=== PATIENT | male | born 1985 | race American Indian/Alaskan Native ===

== ENCOUNTER 2022-12-11 08:15 | Emergency (ER) | payer OTHER ==
[2022-12-11] MEDS ORDERED: Aspirin 81 MG Tab.Chew PO ONE (08:31)
[2022-12-11] MEDS ORDERED: Nitroglycerin 0.4 MG Tab.SL SL ONE (08:32)
[2022-12-11 08:53] LABS: BASOPHILS PERCENT AUTO 0.5 % (0.3-3.8); EOSINOPHILS ABSOLUTE AUTO 0.2 x10-3/uL (0.0-0.6); EOSINOPHILS PERCENT AUTO 2.1 % (0.1-6.8); HEMATOCRIT 34.2 % (38.3-50.1); HEMOGLOBIN 11.7 g/dL (12.9-17.7); LYMPHOCYTES ABSOLUTE AUTO 2.2 x10-3/uL (0.5-4.5); LYMPHOCYTES PERCENT AUTO 22.7 % (15.8-45.3); MEAN CORPUSCULAR HEMOGLOBIN 31.3 pg (27.0-33.3); MEAN CORPUSCULAR HGB CONC 34.2 g/dL (28.7-35.3); MEAN CORPUSCULAR VOLUME 91.5 fL (80.8-98.7); MEAN PLATELET VOLUME 7.7 fL (6.7-11.0); MONOCYTES ABSOLUTE AUTO 0.5 x10-3/uL (0.0-1.2); MONOCYTES PERCENT AUTO 5.2 % (5.5-15.2); NEUTROPHILS ABSOLUTE AUTO 6.7 x10-3/uL (1.7-6.9); NEUTROPHILS PERCENT AUTO 69.5 % (40.3-71.8); PLATELET COUNT,PLT 206 x10(3)uL (117-477); RED BLOOD CELL COUNT 3.74 x10(6)uL (3.90-5.90); RED CELL DISTRIBUTION WIDTH 16.7 % (12.4-15.0); WHITE BLOOD CELL COUNT,WBC 9.7 x10-3/uL (3.2-10.1)
[2022-12-11 08:54] LABS: BLOOD UREA NITROGEN,BUN 2 mg/dL (7-18); BUN/CREATININE RATIO 2.2 (9-20); CALCIUM 7.9 mg/dL (8.6-10.2); CARBON DIOXIDE,CO2 25 mmol/L (21-32); CHLORIDE,CL 100 mmol/L (100-110); CREATININE 0.9 mg/dL (0.70-1.30); EST CRCL DRUG DOSING (CG) 139.31 mL/min; ESTIMATED GFR 114 mL/min (>60); GLUCOSE RANDOM 108 mg/dL (80-116); POTASSIUM,K 3.1 mmol/L (3.5-5.3); SODIUM,NA 136 mmol/L (135-145)
[2022-12-11] MEDS ORDERED: Ketorolac 30 MG/ML SDV IVPUSH ONE (08:56)
[2022-12-11 09:00] LABS: A/G RATIO 0.3; ALANINE AMINOTRANSFERASE,ALT 31 U/L (12-36); ALBUMIN 2.5 g/dL (3.5-5.2); ALKALINE PHOSPHATASE 314 IU/L (56-112); ASPARTATE AMNIOTRANSFERASE,AST 120 IU/L (5-25); BILIRUBIN TOTAL 1.7 mg/dL (0.1-1.3); PROTEIN TOTAL,TP 10.1 g/dL (6.0-8.0)
[2022-12-11] MEDS ORDERED: Potassium Chloride 20 MEQ Tab.ER PO ONE (09:27)
[2022-12-11 09:39] LABS: D-DIMER QUANTITATIVE 0.66 mg/LFEU (0.0-0.59); INR 1.29 (1.00-1.24); PROTHROMBIN TIME 13.2 sec (9.0-11.1); PTT,PARTIAL THROMBOPLSTIN TIME 32.1 SECONDS (24.4-33.2)
[2022-12-11] MEDS ORDERED: Magnesium Sulfate/Water 2 GM in Premix Bag 1 BAG IV ONE (09:43)
[2022-12-11] MEDS ORDERED: Iopamidol 755 Mg/ML 100 ML Bottle IV SCH ×2 (11:00)
[2022-12-11] MEDS ORDERED: Heparin Sodium 5,000 Units/ML Vial IVPUSH ONE (12:05)
[2022-12-11] MEDS ORDERED: Heparin Sodium/0.45% NaCl 500 ML IV SCH (12:06)
[2022-12-11] MEDS ORDERED: fentaNYL 100 MCG/2 ML SDV IVPUSH STA ×2 (12:07→13:53)
[2022-12-11 12:35] LABS: BILIRUBIN,URINE NEGATIVE (NEGATIVE); GLUCOSE,URINE NORMAL (NORMAL); KETONES,URINE NEGATIVE (NEGATIVE); LEUKOCYTE ESTERASE,URINE NEGATIVE (NEGATIVE); NITRITE,URINE NEGATIVE (NEGATIVE); OCCULT BLOOD,URINE NEGATIVE (NEGATIVE); PROTEIN,URINE NEGATIVE (NEGATIVE); UROBILINOGEN,URINE NORMAL (NEGATIVE)
[2022-12-11 12:40] LABS: APPEARANCE,URINE CLEAR (CLEAR); BACTERIA,URINE FEW (NS); COLOR,URINE YELLOW (YELLOW); SQUAMOUS EPITHELIAL CELLS,UR FEW (NS,R,O); WBC,URINE 0-5 (0-5)
[2022-12-11 13:04] LABS: INFLUENZA A NAA NEGATIVE (NEGATIVE); INFLUENZA B NAA NEGATIVE (NEGATIVE)
[2022-12-11 13:06] LABS: CORONAVIRUS COVID-19 NAA NEGATIVE (NEGATIVE)
[2022-12-11] MEDS ORDERED: Potassium Chloride 20 MEQ Tab.ER PO STA (14:02)
== END 2022-12-11 14:46 ==
LOC: FB.ED 08:15
DX: I24.9 Acute ischemic heart disease, unspecified (principal); F10.20 Alcohol dependence, uncomplicated; K76.6 Portal hypertension; K74.60 Unspecified cirrhosis of liver; Z20.822 Contact with and (suspected) exposure to COVID-19
CPT/HCPCS: 0240U; 36415; 71045; 71275; 80053; 81001; 83735; 83880; 84484; 85025; 85379; 85610; 85730; 93005; 96365; 96366; 96367; 96375; 96376; 99285-25; A9270-GY; J1644; J1885; J3010; J3475; Q9967

== ENCOUNTER 2023-01-04 07:48 | Emergency (ER) | payer OTHER ==
[2023-01-04] MEDS ORDERED: Sodium Chloride 0.9% 10 ML Syringe FLUSH PRN (08:26)
[2023-01-04] MEDS ORDERED: Pantoprazole 40 MG Vial IVPUSH ONE (08:27)
[2023-01-04] MEDS ORDERED: Ondansetron 4 MG/2 ML SDV IVPUSH ONE (08:28)
[2023-01-04] MEDS ORDERED: Sodium Chloride 0.9% 1,000 ML IV SCH (08:30)
[2023-01-04 08:36] LABS: BASOPHILS ABSOLUTE AUTO 0.1 x10-3/uL (0.0-0.3); BASOPHILS PERCENT AUTO 0.6 % (0.3-3.8); EOSINOPHILS ABSOLUTE AUTO 0.2 x10-3/uL (0.0-0.6); HEMATOCRIT 37.1 % (38.3-50.1); HEMOGLOBIN 12.5 g/dL (12.9-17.7); LYMPHOCYTES PERCENT AUTO 25.7 % (15.8-45.3); MEAN CORPUSCULAR HEMOGLOBIN 30.6 pg (27.0-33.3); MEAN CORPUSCULAR HGB CONC 33.8 g/dL (28.7-35.3); MEAN CORPUSCULAR VOLUME 90.5 fL (80.8-98.7); MEAN PLATELET VOLUME 8.6 fL (6.7-11.0); MONOCYTES ABSOLUTE AUTO 0.5 x10-3/uL (0.0-1.2); MONOCYTES PERCENT AUTO 3.8 % (5.5-15.2); NEUTROPHILS PERCENT AUTO 67.9 % (40.3-71.8); PLATELET COUNT,PLT 223 x10(3)uL (117-477); WHITE BLOOD CELL COUNT,WBC 11.8 x10-3/uL (3.2-10.1)
[2023-01-04 08:39] LABS: BLOOD UREA NITROGEN,BUN 9 mg/dL (7-18); BUN/CREATININE RATIO 8.2 (9-20); CALCIUM 8.9 mg/dL (8.6-10.2); CARBON DIOXIDE,CO2 25 mmol/L (21-32); CHLORIDE,CL 102 mmol/L (100-110); CREATININE 1.1 mg/dL (0.70-1.30); EST CRCL DRUG DOSING (CG) 110.96 mL/min; ESTIMATED GFR 89 mL/min (>60); GLUCOSE RANDOM 118 mg/dL (80-116); SODIUM,NA 139 mmol/L (135-145)
[2023-01-04 08:45] LABS: A/G RATIO 0.4; ALANINE AMINOTRANSFERASE,ALT 40 U/L (12-36); ALBUMIN 2.9 g/dL (3.5-5.2); ALKALINE PHOSPHATASE 192 IU/L (56-112); AMYLASE 39 U/L (25-115); ASPARTATE AMNIOTRANSFERASE,AST 69 IU/L (5-25); BILIRUBIN TOTAL 1.4 mg/dL (0.1-1.3); INR 1.28 (1.00-1.24); PROTEIN TOTAL,TP 10.7 g/dL (6.0-8.0); PROTHROMBIN TIME 13.1 sec (9.0-11.1)
[2023-01-04 08:47] LABS: PTT,PARTIAL THROMBOPLSTIN TIME 32.7 SECONDS (24.4-33.2)
[2023-01-04 10:02] LABS: BILIRUBIN,URINE NEGATIVE (NEGATIVE); GLUCOSE,URINE NORMAL (NORMAL); KETONES,URINE NEGATIVE (NEGATIVE); LEUKOCYTE ESTERASE,URINE NEGATIVE (NEGATIVE); NITRITE,URINE NEGATIVE (NEGATIVE); OCCULT BLOOD,URINE NEGATIVE (NEGATIVE); PH,URINE 6.5 (5.0-6.5); PROTEIN,URINE NEGATIVE (NEGATIVE); UROBILINOGEN,URINE 1 mg/dL (NEGATIVE)
[2023-01-04] MEDS ORDERED: Prochlorperazine 10 MG/2 ML SDV IVPUSH ONE (10:08)
[2023-01-04 10:10] LABS: APPEARANCE,URINE SLIGHTLY CLOUDY (CLEAR); BACTERIA,URINE MODERATE (NS); COLOR,URINE YELLOW (YELLOW); SQUAMOUS EPITHELIAL CELLS,UR FEW (NS,R,O); WBC,URINE 0-5 (0-5)
[2023-01-04] MEDS ORDERED: Iopamidol 755 Mg/ML 100 ML Bottle IV SCH (10:30)
[2023-01-04] MEDS ORDERED: cefTRIAXone 2 GM Vial IVPUSH ONE (11:01)
[2023-01-04 11:07] LABS: INFLUENZA A NAA NEGATIVE (NEGATIVE); INFLUENZA B NAA NEGATIVE (NEGATIVE)
[2023-01-04 11:11] LABS: CORONAVIRUS COVID-19 NAA NEGATIVE (NEGATIVE)
[2023-01-04] MEDS ORDERED: cefTRIAXone 1 GM Vial IVPUSH ONE (11:15)
[2023-01-04] MEDS ORDERED: LORazepam 2 MG/ML SDV IVPUSH ONE (12:41)
== END 2023-01-04 13:04 ==
LOC: FB.ED 07:48
DX: K92.2 Gastrointestinal hemorrhage, unspecified (principal); I10 Essential (primary) hypertension; K70.9 Alcoholic liver disease, unspecified; K80.20 Calculus of gallbladder without cholecystitis without obstruction; Z20.822 Contact with and (suspected) exposure to COVID-19
CPT/HCPCS: 0240U; 36415; 74177; 80053; 81001; 82150; 83690; 83735; 84484; 85025; 85610; 85730; 93005; 96361; 96374; 96375; 99285; C9113; J0696; J2060; J2405; J7030; Q9967